=== PATIENT | female | born 1990 | race Caucasian/White ===

== ENCOUNTER → 2017-03-07 | Outpatient (CLI) | payer BC ==
--- NOTE | 2017-03-07 14:57 | CT ---
HISTORY: Hematuria and right flank pain. Study: CT abdomen and pelvis without contrast Comparison: None. Technique: Multiple axial images of the abdomen and pelvis were obtained from the lung bases to the pubic symphy sis without the administration of IV contrast. Dose reduction techniques including Automated Exposur e Control (AEC) and adjustment of mA and kV were utilized. Findings: Limited study secondary to lack of IV and oral contrast. Left lower lobe pneumonia. The visualized right lung base is clear. The liver, spleen, pancreas, kidn eys, and adrenal glands are unremarkable in their CT appearance. The gallbladder is surgically absent . No significant mesenteric lymphadenopathy or stranding can be observed. No free fluid or free air is seen within the abdomen. Limited evaluation of the bowel secondary to collapse and lack of oral contrast. The large and small bowel otherwise appear normal. The appendix is normal. The uterus and ovaries appear normal. The urinary bladder is grossly unremarkable. The bony structures are grossly intact. IMPRESSION: 1. No CT evidence of acute abdominal/pelvic pathology. 2. Left lower lobe pneumonia. Reported By:
== END ==
LOC: RAD 12:50
PROVIDERS: ATTEND Internal Medicine
DX: R31.9 Hematuria, unspecified (principal)
CPT/HCPCS: 74176